=== PATIENT | female | born 1985 | race Caucasian/White ===

== ENCOUNTER 2017-10-28 12:09 | Observation (INO) | payer BC ==
[2017-10-28] MEDS ORDERED: PROPOFOL 20 ML IV (12:16)
[2017-10-28] MEDS ORDERED: ONDANSETRON PF 4 MG/2 ML VIAL. (12:16)
[2017-10-28] MEDS ORDERED: DEXAMETHASONE SOD PHOS 20 MG/5 ML VIAL. (12:16)
[2017-10-28] MEDS ORDERED: fentaNYL PF VIAL 100 MCG/2 ML VIAL ×2 (12:16→13:05)
[2017-10-28] MEDS ORDERED: LIDOCAINE 2% PF Vial for OR 5 ML VIAL. (12:16)
[2017-10-28] MEDS ORDERED: MIDAZOLAM HCL/PF 2 MG/2 ML VIAL. (12:17)
[2017-10-28] MEDS ORDERED: ROCURONIUM 50 MG/5 ML VIAL. (12:17)
[2017-10-28] MEDS ORDERED: SUCCINYLCHOLINE 200 MG/10 ML VIAL. (12:17)
[2017-10-28] MEDS ORDERED: NALOXONE 0.4 MG/ML VIAL. IV (12:30)
[2017-10-28] MEDS ORDERED: ONDANSETRON PF 4 MG/2 ML VIAL. IV (12:30)
[2017-10-28] MEDS ORDERED: PROCHLORPERAZINE 10 MG/2 ML VIAL. IV ×2 (12:30)
[2017-10-28] MEDS ORDERED: fentaNYL PF VIAL 100 MCG/2 ML VIAL IV ×3 (12:30)
[2017-10-28] MEDS ORDERED: LIDOCAINE 1% PF 2 ML VIAL. ID (12:30)
[2017-10-28] MEDS ORDERED: diphenhydrAMINE 50 MG/ML VIAL IV (12:30)
[2017-10-28] MEDS ORDERED: MIDAZOLAM HCL/PF 2 MG/2 ML VIAL. IV (12:30)
[2017-10-28] MEDS ORDERED: 0.9 % SODIUM CHLORIDE 10 ML DISP.SYRIN. ID (12:30)
[2017-10-28] MEDS ORDERED: MORPHINE SULFATE 4 MG/ML DISP.SYRIN. IV ×2 (12:30→15:15)
[2017-10-28] MEDS: IV RINGERS,LACTATED 1000ML 1,000 ML IV ×2 (12:35→14:06)
[2017-10-28] MEDS: fentaNYL PF VIAL 100 MCG/2 ML VIAL IV ×2 (12:41→14:47)
[2017-10-28] MEDS ORDERED: GLYCOPYRROLATE 1 MG/5 ML VIAL. (13:00)
[2017-10-28] MEDS ORDERED: NEOSTIGMINE METHYLSULFATE 5 MG/5 ML SYRINGE. (13:00)
[2017-10-28] MEDS: BUPIVACAINE-EPI 0.5%-1:200000 50 ML VIAL. (13:11)
[2017-10-28] MEDS: ALBUTEROL SULFATE 2.5 MG/3 ML NEBU. NEB (14:30)
[2017-10-28] MEDS ORDERED: MORPHINE SULFATE 2 MG/ML DISP.SYRIN. IV (15:00)
[2017-10-28] MEDS: NICOTINE 21MG PATCH. TD (17:44)
[2017-10-28] MEDS: MORPHINE SULFATE 2 MG/ML DISP.SYRIN. IV (17:49)
[2017-10-28] MEDS: oxyCODONE/APAP 5/325 1 TAB TABLET PO ×2 (19:41→23:47)
[2017-10-29 07:24] LABS: BASO # 0.1 x10^3/uL (0.0-0.2); BASO % 1 % (0-3); EOS # 0.1 x10^3/uL (0.0-0.7); EOS % 0 % (0-3); HEMATOCRIT 38.2 % (36.0-47.0); HEMOGLOBIN 12.9 g/dL (12.0-15.5); LYMPH # 3.6 x10^3/uL (1.0-4.8); LYMPH % 15 % (24-48); MEAN CORPUSCULAR HEMOGLOBIN 33 pg (25-35); MEAN CORPUSCULAR HGB CONC 34 g/dL (31-37); MEAN CORPUSCULAR VOLUME 98 fL (79-100); MONO # 2.1 x10^3/uL (0.0-1.1); MONO % 9 % (0-9); NEUT # 18.1 x10^3uL (1.8-7.7); NEUT % 76 % (31-73); PLATELET COUNT 244 x10^3/uL (140-400); RED BLOOD COUNT 3.91 x10^6/uL (3.50-5.40); RED CELL DISTRIBUTION WIDTH 14.3 % (11.5-14.5)
[2017-10-29 07:29] LABS: ADD MAN DIFF? YES
[2017-10-29] MEDS: oxyCODONE/APAP 5/325 1 TAB TABLET PO ×2 (07:34→13:08)
[2017-10-29 07:39] LABS: ALBUMIN 3.1 g/dL (3.4-5.0); ALK PHOS 70 U/L (46-116); ALT (SGPT) 17 U/L (14-59); ANION GAP 5 (6-14); AST (SGOT) 15 U/L (15-37); BLOOD UREA NITROGEN 16 mg/dL (7-20); BUN/CREATININE RATIO 18 (6-20); CALCIUM 8.6 mg/dL (8.5-10.1); CARBON DIOXIDE 26 mmol/L (21-32); CHLORIDE 108 mmol/L (98-107); CREATININE 0.9 mg/dL (0.6-1.0); GFR 73.5; GLUCOSE 94 mg/dL (70-99); POTASSIUM 4.2 mmol/L (3.5-5.1); SODIUM 139 mmol/L (136-145); TOTAL BILIRUBIN 0.5 mg/dL (0.2-1.0); TOTAL PROTEIN 6.3 g/dL (6.4-8.2)
[2017-10-29 07:59] LABS: % BANDS 2 % (0-9); % LYMPHS 15 % (24-48); % MONOS 3 % (0-10); % SEGS 80 % (35-66)
[2017-10-29 08:01] LABS: PLT ESTIMATE ADEQUATE (ADEQUATE)
[2017-10-29] MEDS: NICOTINE 21MG PATCH. TD (09:22)
[2017-10-29] MEDS ORDERED: MAGNESIUM HYDROXIDE 2,400 MG/30 ML ORAL.SUSP. PO (10:30)
[2017-10-29] MEDS: POLYETHYLENE GLYCOL 3350 17 GM PACKET. PO (11:11)
[2017-10-29] MEDS: MAGNESIUM HYDROXIDE 2,400 MG/30 ML ORAL.SUSP. PO (11:11)
[2017-10-30] MEDS ORDERED: POLYETHYLENE GLYCOL 3350 17 GM PACKET. PO (09:00)
== END 2017-10-29 13:40 | disposition home or self-care (01) ==
LOC: 4 NORTH 12:09
DX: K35.80 Unspecified acute appendicitis (principal); J45.909 Unspecified asthma, uncomplicated; F17.210 Nicotine dependence, cigarettes, uncomplicated; K59.00 Constipation, unspecified
CPT/HCPCS: 36415; 80053; 85007; 85025; 88304; 94640; 96374; A7015; G0378; G0379; J0330; J1100; J2001; J2250; J2270; J2405; J2704; J2710; J3010; J3490; J7030; J7120; J7613

== ENCOUNTER → 2020-08-27 | Outpatient (CLI) | payer BC ==
[2017-10-29 11:00] VITALS: BP 104/48
[~2020-08-27] MED LIST: AMOX1TAB58 PO
--- NOTE | 2020-08-27 17:17 | CARD ---
MR#: [id number] Date of Study: 08/27/2020 Ordering Physician: TRISH HINTON, Referring Physician: TRISH HINTON Tech: Judit Cavazos [facility] APPROVED REPORT EXAM: Two-dimensional and M-mode echocardiogram with Doppler and color Doppler. Other Information Quality : Average Rhythm : NSR INDICATION Chest Pain 2D DIMENSIONS RVDd3.2 (2.9-3.5cm)Left Atrium(2D)4.0 (1.6-4.0cm) IVSd0.8 (0.7-1.1cm)Aortic Root(2D)2.8 (2.0-3.7cm) LVDd4.8 (3.9-5.9cm)LVOT Diameter2.1 (1.8-2.4cm) PWd0.8 (0.7-1.1cm)LVDs2.5 (2.5-4.0cm) FS (%) 47.8 %SV86.3 ml LVEF(%)79.1 (>50%) Aortic Valve AoV Peak Terrence.95.6cm/sAoV VTI21.9cm AO Peak GR.3.7mmHgLVOT Peak Terrence.71.6cm/s AO Mean GR.2mmHgAVA (VMAX)2.61cm2 Mitral Valve MV E Hmjuxjux95.1cm/sMV DECEL [id number] MV A Jyqvotnf39.0cm/sE/A Ratio1.3 Pulmonary Valve PV Peak Fgsbxvhk21.0cm/s Tricuspid Valve TR P. Iseyszzv965ei/sTR Peak Gr.17mmHg LEFT VENTRICLE The left ventricle is normal size. There is normal left ventricular wall thickness. The left ventricu lar systolic function is normal and the ejection fraction is within normal range. Estimated ejection fraction 60-65%. There is normal LV segmental wall motion. The left ventricular diastolic function an d filling is normal for age. RIGHT VENTRICLE The right ventricle is normal size. There is normal right ventricular wall thickness. The right ventr icular systolic function is normal. ATRIA The left atrium size is normal. The right atrium size is normal. The interatrial septum is intact wit h no evidence for an atrial septal defect or patent foramen ovale as noted on 2-D or Doppler imaging. AORTIC VALVE The aortic valve is normal in structure and function. Doppler and Color Flow revealed no significant aortic regurgitation. There is no significant aortic valvular stenosis. MITRAL VALVE The mitral valve is normal in structure and function. There is no evidence of mitral valve prolapse. There is no mitral valve stenosis. Doppler and Color-flow revealed trace to mild mitral regurgitation . TRICUSPID VALVE The tricuspid valve is normal in structure and function. Doppler and Color Flow revealed trace tricus pid regurgitation. Estimated PAP 20 mmHg. There is no tricuspid valve stenosis. PULMONIC VALVE The pulmonary valve is normal in structure and function. Doppler and Color Flow revealed mild pulmoni c valvular regurgitation. There is no pulmonic valvular stenosis. GREAT VESSELS The aortic root is normal in size. The ascending aorta is normal in size. The IVC is normal in size a nd collapses >50% with inspiration. PERICARDIAL EFFUSION There is no evidence of significant pericardial effusion. Critical Notification Critical Value: No <Conclusion> The left ventricular systolic function is normal and the ejection fraction is within normal range. E stimated ejection fraction 60-65%. There is normal LV segmental wall motion. Signed by : Heath Richard, Electronically Approved : 08/27/2020 17:17:12
--- NOTE | 2020-08-27 17:23 | RAD ---
MR#: [id number] Date of Study: 08/27/2020 Ordering Physician: TRISH HINTON, Referring Physician: NACHO YEUNG Tech: RT Yrn (R) (N) APPROVED REPORT Test Type: Exercise Stress Nurse/Tech: Kevin Kruger RN Test Indications: chest pain Cardiac History: smoker Medications: See Electronic Medical Record Medical History: See Electronic Medical Record Resting ECG: SR Resting Heart Rate: 73 bpm Resting Blood Pressure: 105/64mmHg Pretest Chest Pain: None Nurse/Tech Notes Lungs CTA, S1S2 Consent: The procedure was explained to the patient in lay terms. Informed consent was witnessed. Alo eout was entered into [employer]. History and Stress Test performed by RT Jany (R) (N) Stress Symptoms Dyspnea POST EXERCISE Reason for Termination: Reached target heart rate Target HR: Yes % of Maximum Predicted HR: 158 bpm Max Blood Pressure: 152/76mmHg Blood Pressure response to exercise: Normal blood pressure response during stress. Heart Rate response to exercise: normal response Chest Pain: No. Arrhythmia: No. ST Change: No. INTERPRETATION Stress EKG Conclusion: No evidence of stress induced EKG changes. Imaging Protocol IMAGE PROTOCOL: Rest Tc-99m/stress Tc-99m 1 day Rest: Stress: Viability: Radiopharm.Tc99m Sestamibi Glsp55pRx 32mCi Img Date 08/27/2020 08/27/2020 Inj-Img Idiz18aed. 60min. Rest Admin Site:IV - Left AntecubitalAdministrator:ANISH Ortiz, ARRT (R)(N) Stress Admin Site: IV - Left AntecubitalAdministrator: RT Newton CarmichaelR)(N) STRESS DATA End Diast. Vol.88.0mlLVEDV index BSA49.0ml End Syst. Vol.25.0mlLVESV index BSA14.0ml Myocardial Tlxd155.0gEject. Lsppqmov13.0% Stress Scores Regional WT1.00Summed WT1.00 Regional WM0.00Summed WM0.00 The rest and stress images show normal perfusion, normal contraction and thickening. LV Perf. Quant 17 Seg. SSS1.00 17 Seg. SRS0.00 17 Seg. SDS1.00 Stress Defect Extent (% LAD)0.00Rest Defect Extent (% LAD)0.00Rev. Defect Extent (% LAD)0.00 Stress Defect Extent (% LCX) 0.00Rest Defect Extent (% LCX)0.00Rev. Defect Extent (% LCX)0.00 Stress Defect Extent (% RCA)0.00Rest Defect Extent (% RCA)0.00Rev. Defect Extent (% RCA)0.00 Stress Defect Extent (% MASON)0.00Rest Defect Extent (% MASON)0.00Rev. Defect Extent (% MASON)0.00 Other Information Quality:Average Risk Assessment: Low Risk Conclusion 1. No evidence of EKG changes with stress testing. 2. Normal perfusion at stress/rest. 3. Low risk study. 4. EF > 60%. Signed by : Heath Richard, Electronically Approved : 08/27/2020 17:23:14
== END ==
LOC: NM 09:18
PROVIDERS: ATTEND Internal Medicine Cardiovascular Disease
DX: I08.8 Other rheumatic multiple valve diseases (principal)
CPT/HCPCS: 78452; 93017; 93306; A9500